=== PATIENT | male | born 1975 | race African-American/Black ===

== ENCOUNTER 2019-05-17 20:21 | Emergency (ER) | payer OTHER ==
[~2019-05-17] VITALS: Ht 165.1 cm; Wt 102.3 kg
[2019-05-17 20:30] VITALS: Ht 165.1 cm; Wt 102.3 kg
[2019-05-17] MEDS ORDERED: BP MEDS (20:31)
[2019-05-17] MEDS ORDERED: EC-NAPROSYN500 MG PO (21:30)
[2019-05-17] MEDS ORDERED: CYCLOBENZAPRINE10 MG PO (21:30)
[2019-05-17 22:00] VITALS: BP 179/109
== END 2019-05-17 22:00 | disposition home or self-care (01) ==
LOC: D.ER 20:21
DX: S80.01XA Contusion of right knee, initial encounter (principal); W31.82XA Contact with other commercial machinery, initial encounter; M25.461 Effusion, right knee; M25.561 Pain in right knee; I10 Essential (primary) hypertension; E11.9 Type 2 diabetes mellitus without complications; Z72.0 Tobacco use

== ENCOUNTER 2020-08-29 12:34 | Emergency (ER) | payer SELFPAY ==
[~2020-08-29] VITALS: Ht 165.1 cm; Wt 100.5 kg
[~2020-08-29 12:34] MED LIST: BP MEDS; CYCLOBENZAPRINE10 MG PO; EC-NAPROSYN500 MG PO
[2020-08-29 12:47] VITALS: Ht 165.1 cm; Wt 100.5 kg
[2020-08-29 13:09] LABS: BASOPHILS 1.1 % (0-2); EOSINOPHILS 6.5 % (0-7); HEMATOCRIT 42.5 % (42.0-54.0); HEMOGLOBIN 14.6 g/dL (13.5-17.5); LYMPHOCYTES 23.9 % (15-50); MCH 33.5 pg (26.0-34.0); MCHC 34.3 g/dL (31.0-37.0); MCV 97.7 fL (80.0-100.0); MEAN PLATELET VOLUME 9.5 fL (7.4-10.4); MONOCYTES 9.6 % (2-11); NEUTROPHILS 58.9 % (40-80); PLATELET COUNT 189 10x3/uL (130-400); RBC 4.35 10x6/uL (4.20-6.10); RDW 12.4 % (11.5-14.5); WBC 7.2 10x3/uL (4.8-10.8)
[2020-08-29 13:26] LABS: CALC OSMOLALITY 280 mosm/kg (275-300); CHLORIDE - SERUM 103 mmol/L (98-107); GLUCOSE 265 mg/dL (74-106); POTASSIUM - SERUM 3.6 mmol/L (3.5-5.1); SODIUM 137 mmol/L (136-145); UREA NITROGEN 7 mg/dL (7-18); eGFR NON AFRICAN AMERICAN 86 mL/min (90-120)
[2020-08-29 13:42] LABS: ALBUMIN 3.7 g/dL (3.4-5.0); ALKALINE PHOSPHATASE 59 U/L (30-120); ALT (SGPT) 18 U/L (10-68); BILIRUBIN - TOTAL 0.57 mg/dL (0.2-1.3); CKMB 0.8 U/L (0.0-3.6); CREATINE KINASE 60 UL (21-232); MAGNESIUM - SERUM 1.8 mg/dL (1.8-2.4); PROTEIN - SERUM 7.1 g/dL (6.4-8.2); TROPONIN-I < 0.017 ng/mL (0.000-0.060)
[2020-08-29] MEDS ORDERED: NORVASC10 MG PO (13:46)
[2020-08-29] MEDS ORDERED: GLUCOPHAGE500 MG PO (13:58)
[2020-08-29 14:23] VITALS: BP 155/118
== END 2020-08-29 14:24 | disposition home or self-care (01) ==
LOC: D.ER 12:34
PROVIDERS: Family Medicine
DX: I10 Essential (primary) hypertension (principal); E11.65 Type 2 diabetes mellitus with hyperglycemia